=== PATIENT | female | born 1940 | race Caucasian/White ===

== ENCOUNTER → 2018-04-16 08:38 | Outpatient (CLI) | payer MEDICARE, OTHER, SELFPAY ==
--- NOTE | 2018-04-16 08:45 | NM_ITS ---
NM bone 3 phase Ordering Physician: aDx Wagner Patient Age: 77 years: Female HISTORY: ITS.REASON: RT HIP PAIN TECHNIQUE: 3 phase bone scan performed following administration of 27.5 mCi Tc MDP. COMPARISON :Plain films right hip from September 2016. No studies subsequent to that in our PACS FINDINGS The patient has bilateral femoral prosthesis which have been placed since prior plain films at this facility performed September 2016 and now complains discomfort sensations at the right hip Initial Flow Images: show no significant asymmetry. No remarkable inflammation. Immediate Blood Pool images: show no significant findings. Fairly symmetrical appearance of the vascular structures with no areas of significant hyperemia or increased flow to either hip. Or proximal femur 3 hour Delayed images then performed.: .. No significant findings at the right prosthesis or proximal right femur. The activity at the proximal femur appears fairly symmetric. If anything slightly more evident at the tip in color of of the left femoral medullary stem than the right. Bilaterally there is slight relative increased activity of both right and left acetabulum this too is slightly more evident on the left than right. I see no good evidence of fracture or loosening involving the symptomatic right hip prosthesis IMPRESSION: The symptomatic RIGHT hip prosthesis shows no significant findings . No hyperemia. No increased blood flow/cellulitis On delayed images there is no good evidence of fracture or loosening involving the symptomatic RIGHT hip prosthesis (If anything there is very slight greater activity at the LEFT acetabulum with only question of very slight greater activity about the femoral stem of the LEFT femoral prosthesis, vs the symptomatic Right prosthesis.).
== END ==
PROVIDERS: PCP Family Medicine; Visit Provider Specialist/Technologist Athletic Trainer
DX: M25.551 Pain in right hip (principal)
CPT/HCPCS: 78315; A9503